=== PATIENT | female | born 1950 | race Caucasian/White ===

== ENCOUNTER 2022-08-14 21:48 | Emergency (ER) | payer MEDICARE ==
[~2022-08-14] VITALS: Ht 165.1 cm; Wt 77.1 kg
[2022-08-14] MEDS ORDERED: ASPIRIN 81 MG TAB.CHEW PO ONE (22:30)
[2022-08-14] MEDS ORDERED: NITROGLYCERIN OINT 1 GM PACKET TP ONE ×2 (22:30→22:33)
[2022-08-14] MEDS ORDERED: ASPIRIN 81 MG TAB.CHEW ONE (22:33)
[2022-08-14] MEDS ORDERED: SITA100T PO (22:45)
[2022-08-14] MEDS ORDERED: HYDR-4077 PO (22:45)
[2022-08-14] MEDS ORDERED: EZET10TA15 PO (22:45)
[2022-08-14] MEDS ORDERED: OLME1TAB22 PO (22:45)
[2022-08-14 22:50] LABS: HEMATOCRIT 43.9 % (31.2-41.9); MEAN CORPUSCULAR HEMOGLOBIN 29.3 uug (24.7-32.8); PLATELET COUNT (AUTO) 287 K/uL (179-408)
[2022-08-14 22:59] LABS: CARBON DIOXIDE 27 mmol/L (21-32); CHLORIDE 101 mmol/L (98-107); CREATININE 1.7 mg/dL (0.6-1.3); GLUCOSE 124 mg/dL (74-106); POTASSIUM 3.4 mmol/L (3.5-5.1); UREA NITROGEN, BLOOD 15 mg/dL (7-18)
[2022-08-14 23:11] LABS: ALANINE AMINOTRANSFERASE 122 U/L (14-59); ALKALINE PHOSPHATASE 96 U/L (50-136); ASPARTATE AMINOTRANSFERASE 102 U/L (15-37); BILIRUBIN,DIRECT 0.3 mg/dL (0.0-0.2); BILIRUBIN,TOTAL 1.6 mg/dL (0.2-1.0); TOTAL PROTEIN, SERUM 7.6 g/dL (6.4-8.2)
[2022-08-15] MEDS ORDERED: LORA-259 PO (00:05)
--- NOTE | 2022-08-15 00:20 | NUR ---
Patient does not wish to proceed with medical care recommended by Dr. Motta. Patient given information related to possible complications, up to and including , which could occur as a result of leaving the hospital at this time. Patient verbalizes understanding of risks involved due to leaving against medical advice. Patient has signed AMA form.
--- NOTE | 2022-08-15 00:26 | NUR ---
Patient discharged to home in stable condition. Written and verbal after care instructions given. Patient verbalizes understanding of instructions. Stressed follow up or return to ER for worsening s/s. Patient is a/ox4, NAD noted. Patient ambulatory with steady gait
[2022-08-15 00:27] VITALS: BP 126/71
== END 2022-08-15 00:27 | disposition left against medical advice (07) ==
LOC: ER 21:53
DX: R00.2 Palpitations (principal); R07.89 Other chest pain; I49.3 Ventricular premature depolarization; I10 Essential (primary) hypertension; E11.9 Type 2 diabetes mellitus without complications; Z79.899 Other long term (current) drug therapy
CPT/HCPCS: 36415; 71045; 84484; 85025; 93005; A4663

== ENCOUNTER 2024-05-01 23:51 | Emergency (ER) | payer MEDICARE, OTHER ==
[~2024-05-01] VITALS: Ht 167.6 cm; Wt 97.5 kg
[~2024-05-01 23:51] MED LIST: EZET10TA15 PO; HYDR-4077 PO; LORA-259 PO; OLME1TAB22 PO; SITA100T PO
[2024-05-02 00:06] VITALS: O2SAT 99
== END 2024-05-02 00:40 | disposition left against medical advice (07) ==
LOC: ER 23:53
DX: J98.8 Other specified respiratory disorders (principal); R07.89 Other chest pain; R03.0 Elevated blood-pressure reading, without diagnosis of hypertension; R94.31 Abnormal electrocardiogram [ECG] [EKG]; R50.9 Fever, unspecified; E11.9 Type 2 diabetes mellitus without complications; I11.9 Hypertensive heart disease without heart failure; I25.10 Atherosclerotic heart disease of native coronary artery without angina pectoris; Z79.84 Long term (current) use of oral hypoglycemic drugs; Z79.899 Other long term (current) drug therapy; Z86.79 Personal history of other diseases of the circulatory system; Z95.5 Presence of coronary angioplasty implant and graft
CPT/HCPCS: A4606; A4663